=== PATIENT | female | born 1950 | race Caucasian/White ===

== ENCOUNTER 2018-10-23 11:27 | Day surgery (SDC) | payer MEDICARE, BC ==
[~2018-10-23 11:27] MED LIST: Lactated Ringers 1,000 ML IV SCH; Sodium Chloride 0.9% 10 ML Syringe FLUSH PRN
[2018-10-23] MEDS ORDERED: Sodium Phosphate,Monobasic/Sodium Phosphate,Dibasic Enema 133 ML Bottle RECTAL ONE (12:30)
[2018-10-23] MEDS ORDERED: fentaNYL 100 MCG/2 ML SDV ONE (12:38)
[2018-10-23] MEDS ORDERED: Propofol 200 MG/20 ML SDV ONE ×2 (12:39→13:30)
--- NOTE | 2018-10-23 14:43 | OR ---
PREOPERATIVE DIAGNOSIS: Positive Cologuard. POSTOPERATIVE DIAGNOSIS: Colonic polyps x3, ascending colon. PROCEDURE PROPOSED: Total flexible colonoscopy. PROCEDURES DONE: 1. Total flexible colonoscopy with hot snare polypectomy x1, piecemeal fashion. 2. Cold biopsy forceps polypectomy x2. 3. Karen-polypectomy tattooing. INDICATION: This is a 68-year-old female who was found to have positive Cologuard test and was referred for colonoscopy. Her last examination was about 9 years ago. TECHNIQUE: She was brought to the endoscopy suite and placed in left lateral decubitus position. She was sedated per [employer] with propofol. The flexible video colonoscope was then passed transanally and, under visualization, advanced to the cecum. In the ascending colon, she was found to have a fairly large tubovillous polyp that I was able to remove in a piecemeal fashion using the barbed hot snare technique removing it in about 5 or 6 pieces and suctioning out all of the pieces, except the largest 1 which stuck to the end of the scope. There were 2 other polyps in that same vicinity that I removed by cold snare polypectomy technique and also submitted them for pathologic examination. The remainder of the transverse and descending colon was unremarkable. The sigmoid colon revealed some very mild diverticulosis, and the rectal mucosa was normal. The scope was then withdrawn. The patient tolerated the procedure well. The polypectomy site of the large polyp was tattooed in 2 areas, 1 on each side of the polypectomy site, leaving about 1 mL of dye submucosally in each area. FINAL IMPRESSION: 1. Large tubovillous polyp, ascending colon, removed piecemeal fashion. 2. 2 smaller polyps removed by cold biopsy forceps, ascending colon. PLAN: She will be sent a letter with pathology report, and I will make further recommendations as to when I feel she should have her next followup exam, which I feel should be relatively a short-term followup possibly in 6 months. SCM: 10/23/2018 13:58:50 MODL: 10/23/2018 14:32:52 /[id number]
--- NOTE | 2018-10-28 11:08 | LETTER ---
10/28/2018 Erin Franco RE: ERIN FRANCO : 1950 Dear Erin: The polyp removed from your colon was a tubulovillous adenoma, and there were some mild precancerous changes that had just started in this polyp. It therefore makes this a high-risk type polyp and I do feel that you need a close short-term followup exam to make sure that this polyp has been adequately removed and I would recommend that you have an exam within, the next year, within 6-12 months to have this area looked at again. If you have any further questions regarding this, feel free to call. Respectfully,
== END 2018-10-23 14:25 | disposition home or self-care (01) ==
LOC: VM.SDS 11:27
PROVIDERS: ATTEND Surgery
DX: D12.2 Benign neoplasm of ascending colon (principal); K57.30 Diverticulosis of large intestine without perforation or abscess without bleeding; F41.9 Anxiety disorder, unspecified; F32.9 Major depressive disorder, single episode, unspecified; Z79.899 Other long term (current) drug therapy; Z96.653 Presence of artificial knee joint, bilateral; M85.80 Other specified disorders of bone density and structure, unspecified site; N39.3 Stress incontinence (female) (male)
CPT/HCPCS: 45380; 45385; 88305; A9270; J2704; J3010; J7120; 45384

== ENCOUNTER → 2022-01-10 | Day surgery (SDC) | payer MEDICARE, BC ==
[~2022-01-10] MED LIST changes: +Propofol 200 MG/20 ML SDV ONE; -Sodium Chloride 0.9% 10 ML Syringe FLUSH PRN; +ePHEDrine 50 MG/ML SDV ONE; +fentaNYL 100 MCG/2 ML SDV ONE
== END ==
LOC: VM.SDS 06:00
PROVIDERS: ATTEND Family Medicine
DX: Z12.11 Encounter for screening for malignant neoplasm of colon (principal); K57.30 Diverticulosis of large intestine without perforation or abscess without bleeding; D12.0 Benign neoplasm of cecum; D12.6 Benign neoplasm of colon, unspecified; D50.9 Iron deficiency anemia, unspecified; F32.A Depression, unspecified; M85.80 Other specified disorders of bone density and structure, unspecified site; M19.90 Unspecified osteoarthritis, unspecified site; Z86.010 Personal history of colon polyps; Z98.890 Other specified postprocedural states; Z96.653 Presence of artificial knee joint, bilateral; Z79.899 Other long term (current) drug therapy
CPT/HCPCS: 00811; 88305; 88341; 88342; J2704; J3010; J7120

== ENCOUNTER 2024-09-16 09:39 | Day surgery (SDC) | payer MEDICARE, OTHER ==
[2024-09-16] MEDS: Lactated Ringers 1,000 ML IV SCH (09:52)
[2024-09-16] MEDS ORDERED: Midazolam 1 MG/ML 2 ML SDV ONE (10:12)
[2024-09-16] MEDS ORDERED: fentaNYL 100 MCG/2 ML SDV ONE (10:12)
[2024-09-16] MEDS ORDERED: Propofol 200 MG/20 ML SDV ONE ×2 (10:12→11:31)
[2024-09-16] MEDS ORDERED: ePHEDrine 50 MG/ML SDV ONE (11:07)
== END 2024-09-16 12:54 | disposition home or self-care (01) ==
LOC: VM.SDS 09:39
PROVIDERS: ATTEND Family Medicine
DX: D12.0 Benign neoplasm of cecum (principal); D12.6 Benign neoplasm of colon, unspecified; K57.30 Diverticulosis of large intestine without perforation or abscess without bleeding; Z86.0100 Personal history of colon polyps, unspecified; K21.9 Gastro-esophageal reflux disease without esophagitis; E66.01 Morbid (severe) obesity due to excess calories; Z68.41 Body mass index [BMI] 40.0-44.9, adult; Z79.899 Other long term (current) drug therapy
CPT/HCPCS: 88305; J2250; J2704; J3010; J3490; J7120